=== PATIENT | female | born 1995 | race Caucasian/White ===

== ENCOUNTER 2024-12-28 17:05 | Inpatient (IN) | payer MEDICAID, OTHER ==
--- NOTE | 2024-12-28 17:59 | ED ---
General Adult HPI - General Source: patient Mode of arrival: ambulatory Limitations: no limitations <Leann Durbin - Last Filed: 12/28/24 17:59> - General Source: patient, RN notes reviewed, old records reviewed <Nikhil Rodriguez - Last Filed: 12/29/24 22:58> - General Chief complaint: Psychiatric Symptoms Stated complaint: Mental health eval Time Seen by Provider: 12/28/24 17:55 - History of Present Illness Initial comments: 29-year-old female presenting with chief complaint of anxiety. States that she is having a rough time at home and ran away today. She feels hopeless, no plan to harm herself. (Leann Durbin) Patient is a 29-year-old female who presents emergency department complaining of anxiety, suicidal ideations with thoughts of freezing to . Does have a history of poking her feet with needles. States she has not done that recently. States she is under a lot of stress lately. Denies homicidal ideations, times, plans. States she feels like she just wants to . Denies any hallucinations. Presents for further evaluation at this time. Patient originally seen as a quick note. (Nikhil Rodriguez) - Related Data Home Medications Medication Instructions Recorded Confirmed Desvenlafaxine [Pristiq ER] 100 mg PO DAILY 12/29/24 12/29/24 Levothyroxine Sodium [Synthroid] 137 mcg PO AC-BRKFST 12/29/24 12/29/24 Vitamin D3(Unknown Dose) 1 tab PO DAILY 12/29/24 12/29/24 clonazePAM [KlonoPIN] 0.5 mg PO DAILY 12/29/24 12/29/24 Allergies Allergy/AdvReac Type Severity Reaction Status Date / Time paroxetine [From Paxil] AdvReac "BP issues" Verified 12/29/24 18:06 sertraline [From Zoloft] AdvReac "made Verified 12/29/24 10:36 anxiety worse" Review of Systems ROS Other: All systems not noted in ROS Statement are negative. <Leann Durbin - Last Filed: 12/28/24 17:59> ROS Other: All systems not noted in ROS Statement are negative. <Nikhil Rodriguez - Last Filed: 12/29/24 22:58> ROS Statement: Those systems with pertinent positive or pertinent negative responses have been documented in the HPI. Review of Systems: CONST: Denies fever EYES: Denies blurry vision ENT: Denies nasal congestion C/V: Denies Chest pain RESP: Denies shortness of breath GI: Denies abdominal pain : Denies dysuria SKIN: Denies rash. MSK: Denies joint pain. NEURO: Denies headache (Nikhil Rodriguez) Past Medical History Past Medical History: Thyroid Disorder Past Psychological History: Anxiety, Bipolar, Depression, Panic Disorder Smoking Status: Never smoker Past Alcohol Use History: None Reported Past Drug Use History: None Reported <Leann Durbin - Last Filed: 12/28/24 17:59> - Past Family History Mother Family Medical History: Hypertension, Thyroid Disorder <Nikhil Rodriguez - Last Filed: 12/29/24 22:58> General Exam Limitations: no limitations <Leann Durbin - Last Filed: 12/28/24 17:59> <Nikhil Rodriguez - Last Filed: 12/29/24 22:58> - General Exam Comments Initial Comments: Visual Physical Exam Vital signs reviewed General: Well-appearing, nontoxic, no acute distress. Head: Normocephalic, atraumatic Eyes: PERRLA, EOMI ENT: Airway patent Chest: Nonlabored breathing Skin: No visual rash, normal skin tone Neuro: Alert and oriented 3 Musculoskeletal: No gross abnormalities (Leann Durbin) General: Appears anxious HEAD: Normal with no signs of head trauma. EYES: EOMI. ENT: Hearing grossly intact. RESPIRATORY: No respiratory distress. C/V: Regular rate and rhythm. ABD: Abdomen is nondistended. EXT: No obvious deformity. SKIN: No rashes or lesions observed on exposed skin. NEURO: Alert and oriented. (Nikhil Rodriguez) Course Vital Signs 12/28/24 12/28/24 12/29/24 17:25 22:44 12:40 Temperature 97.9 F Pulse Rate 110 H 104 H Respiratory 22 18 Rate Blood Pressure 131/72 137/85 O2 Sat by Pulse 97 100 Oximetry Medical Decision Making <Leann Durbin - Last Filed: 12/28/24 17:59> <Nikhil Rodriguez - Last Filed: 12/29/24 22:58> - Medical Decision Making I performed the quick note portion of this visit, electronically signed Leann Durbin PA-C (Leann Durbin) Was pt. sent in by a medical professional or institution (DAVID Sabillon, STEEPING PRESS TENDER, urgent care, hospital, or longterm...) When possible be specific @ -No Did you speak to anyone other than the patient for history (EMS, parent, family, police, friend...)? What history was obtained from this source @ -No Did you review nursing and triage notes (agree or disagree)? Why? @ -I reviewed and agree with nursing and triage notes Were old charts reviewed (outside hosp., previous admission, EMS record, old EKG, old radiological studies, urgent care reports/EKG's, longterm records)? Report findings @ -No old charts were reviewed Differential Diagnosis (chest pain, altered mental status, abdominal pain women, abdominal pain men, vaginal bleeding, weakness, fever, dyspnea, syncope, headache, dizziness, GI bleed, back pain, seizure, CVA, palpatations, mental health, musculoskeletal)? @ -Differential Mental Health Depression, anxiety, bipolar, psychosis, schizophrenia, borderline personality, situational depression, adjustment disorder, behavioral disorder, brain tumor, malingering, substance abuse, encephalopathy, medication reaction, dementia, hypothyroidism, degenerative neurologic disorder, lupus.... This is not meant to be all-inclusive list EKG interpreted by me (3pts min.). @ -None done X-rays interpreted by me (1pt min.). @ -None done CT interpreted by me (1pt min.). @ -None done U/S interpreted by me (1pt. min.). @ -None done What testing was considered but not performed or refused? (CT, X-rays, U/S, labs)? Why? @ -None What meds were considered but not given or refused? Why? @ -None Did you discuss the management of the patient with other professionals (professionals i.e. DAVID Sabillon, STEEPING PRESS TENDER, lab, RT, psych nurse, high school social studies teacher, loom tuner, teacher, boat officer, major case detective)? Give summary @ -No Was smoking cessation discussed for >3mins.? @ -No Was critical care preformed (if so, how long)? @ -No Were there social determinants of health that impacted care today? How? (Homelessness, low income, unemployed, alcoholism, drug addiction, transportation, low edu. Level, literacy, decrease access to med. care, fci, rehab)? @ -No Was there de-escalation of care discussed even if they declined (Discuss DNR or withdrawal of care, Hospice)? DNR status @ -No What co-morbidities impacted this encounter? (DM, HTN, Smoking, COPD, CAD, Cancer, CVA, ARF, Chemo, Hep., AIDS, mental health diagnosis, sleep apnea, morbid obesity)? @ -None Was patient admitted / discharged? Hospital course, mention meds given and route, prescriptions, significant lab abnormalities, going to OR and other pertinent info. @ -Patient presents emergency department for increased anxiety and suicidal ideation. BAT is 0. UDS is negative. Patient is not . COVID is negative. Vitals are within acceptable limits. At this time patient is medically cleared. Disposition pending psychiatric evaluation. EPS notified of the consult. Patient was given a dose of Ativan orally for anxiety. EPS evaluated the patient and did admit the patient to inpatient psychiatry. Undiagnosed new problem with uncertain prognosis? @ -No Drug Therapy requiring intensive monitoring for toxicity (Heparin, Nitro, Insulin, Cardizem)? @ -No Were any procedures done? @ -No Diagnosis/symptom? @ -Anxiety, suicidal ideation Acute, or Chronic, or Acute on Chronic? @ -Acute Uncomplicated (without systemic symptoms) or Complicated (systemic symptoms)? @ -Complicated Side effects of treatment? @ -None Exacerbation, Progression, or Severe Exacerbation] @ -No Poses a threat to life or bodily function? @ -Yes (Nikhil Rodriguez) - Lab Data Lab Results 12/28/24 12/28/24 12/28/24 Range/Units 18:08 18:08 19:32 Urine Color Colorless Urine Appearance Cloudy H (Clear) Urine pH 7.0 (5.0-8.0) Ur Specific [place] 1.001 (1.001-1.035) Urine Protein Negative (Negative) Urine Glucose (UA) Negative (Negative) Urine Ketones Negative (Negative) Urine Blood Negative (Negative) Urine Nitrite Negative (Negative) Urine Bilirubin Negative (Negative) Urine Urobilinogen <2.0 (<2.0) mg/dL Ur Leukocyte Esterase Large H (Negative) Urine RBC 1 (0-5) /hpf Urine WBC 10 H (0-5) /hpf Ur Squamous Epith Cells 1 (0-4) /hpf Urine HCG, Qual Not Detected (Not Detectd) Urine Opiates Screen Not Detected (NotDetected) Ur Oxycodone Screen Not Detected (NotDetected) Urine Methadone Screen Not Detected (NotDetected) Ur Barbiturates Screen Not Detected (NotDetected) U Tricyclic Antidepress Not Detected (NotDetected) Ur Phencyclidine Scrn Not Detected (NotDetected) Ur Amphetamines Screen Not Detected (NotDetected) U Methamphetamines Scrn Not Detected (NotDetected) U Benzodiazepines Scrn Not Detected (NotDetected) Urine Cocaine Screen Not Detected (NotDetected) U Marijuana (THC) Screen Not Detected (NotDetected) SARS-CoV-2 (PCR) Not Detected (Not Detectd) Disposition <Leann Durbin - Last Filed: 12/28/24 17:59> <Nikhil Rodriguez - Last Filed: 12/29/24 22:58> Clinical Impression: Acute anxiety, Suicidal ideation Disposition: TRANSFER TO PSYCH HOSP/UNIT Condition: Stable
[2024-12-28 18:21] LABS: Appearance,Urine Cloudy (Clear); Bilirubin,Urine Negative (Negative); Blood,Urine Negative (Negative); Color,Urine Colorless; Glucose,Urine (UA) Negative (Negative); Ketones,Urine Negative (Negative); Leukocyte Esterase,Urine Large (Negative); Nitrite,Urine Negative (Negative); Protein,Urine Negative (Negative); RBC,Urine 1 /hpf (0-5); Specific Gravity,Urine 1.001 (1.001-1.035); Squamous Epithelial Cell,Urine 1 /hpf (0-4); Urobilinogen,Urine <2.0 mg/dL (<2.0); WBC,Urine 10 /hpf (0-5)
[2024-12-28 18:48] LABS: Amphetamine Screen,Urine Not Detected (NotDetected); Barbiturate Screen,Urine Not Detected (NotDetected); Benzodiazepines Screen,Urine Not Detected (NotDetected); Cocaine Screen,Urine Not Detected (NotDetected); Methadone Screen, Urine Not Detected (NotDetected); Opiate Screen,Urine Not Detected (NotDetected); Oxycodone Screen, Urine Not Detected (NotDetected); Phencyclidine Screen,Urine Not Detected (NotDetected); Tricyclic Antidepressant,Urine Not Detected (NotDetected); Urn Cannabinoid Scrn Not Detected (NotDetected)
[2024-12-28] MEDS: LORazepam 1 MG TAB PO STA (19:48)
[2024-12-29] MEDS ORDERED: LORazepam 2 MG/ML INJ IM PRN (12:10)
[2024-12-29] MEDS ORDERED: haloperidoL 5 MG TAB PO PRN (12:10)
[2024-12-29] MEDS ORDERED: HALOPERIDOL LACTATE 5 MG/ML 1 ML VIAL IM PRN (12:10)
[2024-12-29] MEDS ORDERED: ACETAMINOPHEN TAB 325 MG TAB PO PRN (12:10)
[2024-12-29] MEDS ORDERED: IBUPROFEN 600 MG TAB PO PRN (12:10)
[2024-12-29] MEDS ORDERED: MAGNESIUM HYDROXIDE 2,400 MG/30 ML CUP PO PRN (12:10)
[2024-12-29] MEDS ORDERED: MAG HYDROX/AL HYDROX/SIMETH 355 ML BOTTLE PO PRN (12:10)
[2024-12-29] MEDS: LEVOTHYROXINE 137 MCG TAB PO SCH (13:34)
[2024-12-29] MEDS: DESVENLAFAXINE SUCCINATE 50 MG TAB.ER.24H PO SCH (13:34)
--- NOTE | 2024-12-29 20:34 | P.CONS ---
History of Present Illness - Reason for Consult Consult date: 12/29/24 Medical management Requesting physician: Hunter Mcpherson - Chief Complaint Depressed - History of Present Illness Very pleasant 29-year-old patient follows with Dr. Rajani Tinoco. History history of hypothyroid, depression, panic attacks. Patient presented to the ER being increasingly anxious suicidal ideations with thoughts of freezing to . History of poking her feet with needles. Also a lot of stress. She likes her mother but she feels her mother is also with a lot of anxiety and stress that is contributing to her presentation. Patient not able to keep jobs. She does stress eating. Sleeps okay. Denies any pain. Does drink a lot of water. Review of systems: GEN.: None EYES: None HEENT: None NECK: None RESPIRATORY: None CARDIOVASCULAR: None GASTROINTESTINAL: None GENITOURINARY: None MUSCULOSKELETAL: None LYMPHATICS: None HEMATOLOGICAL: None PSYCHIATRY: As above NEUROLOGICAL: None Social history: Lives with her mother. Does not smoke or drink or does any recreational drugs. Currently not working Physical examination: VITAL SIGNS: 97.9, 110, 22, 131/72, 97% room air GENERAL: BMI 41.3, sitting up smiling. EYES: Pupils equal. Conjunctiva fransisca l. HEENT: External appearance of nose and ears normal, oral cavity grossly normal. NECK: JVD not raised; masses not palpable. HEART: First and second heart sounds are normal; no edema. LUNGS: Respiratory rate normal; clear to auscultation. ABDOMEN: Soft, nontender, liver spleen not palpable, no masses palpable. PSYCH: [Alert and oriented x3; mood and affect. Anxious. MUSCULOSKELETAL:No Clubbing/cyanosis;muscles-grossly intact NEUROLOGICAL: Cranial nerves grossly intact; no facial asymmetry, power and sensation grossly intact. LYMPHATICS: No lymph nodes palpable in the axilla and neck INVESTIGATIONS, reviewed in the clinical context: UA cloudy, leukoesterase large WBC 10. Urine hCG not detected Urine drug screen: Negative SARS-CoV-2 PCR: Not detected Assessment plan: -Hypothyroid Levothyroxine 137 mcg/day. Check TSH and free T4 -Morbid obesity BMI 41.3 Weight loss measures -Panic attacks Klonopin as needed -Anxiety depression Pristiq ER. Other recommendations per psychiatry. Ativan as needed. Care was discussed with patient. Questions answered. Patient should follow-up with Dr. Tinoco upon discharge. Past Medical History Past Medical History: Thyroid Disorder History of Any Multi-Drug Resistant Organisms: None Reported Past Surgical History: No Surgical Hx Reported Past Anesthesia/Blood Transfusion Reactions: No Reported Reaction Past Psychological History: Anxiety, Bipolar, Depression, Panic Disorder Smoking Status: Never smoker Past Alcohol Use History: None Reported Past Drug Use History: None Reported - Past Family History Mother Family Medical History: Hypertension, Thyroid Disorder Medications and Allergies Home Medications Medication Instructions Recorded Confirmed Type Desvenlafaxine [Pristiq ER] 100 mg PO DAILY 12/29/24 12/29/24 History Levothyroxine Sodium [Synthroid] 137 mcg PO AC-BRKFST 12/29/24 12/29/24 History Vitamin D3(Unknown Dose) 1 tab PO DAILY 12/29/24 12/29/24 History clonazePAM [KlonoPIN] 0.5 mg PO DAILY 12/29/24 12/29/24 History Allergies Allergy/AdvReac Type Severity Reaction Status Date / Time paroxetine [From Paxil] AdvReac "BP issues" Verified 12/29/24 18:06 sertraline [From Zoloft] AdvReac "made Verified 12/29/24 10:36 anxiety worse" Physical Exam Vitals: Vital Signs Temp Pulse Pulse Resp BP BP Pulse Ox 12/29/24 14:46 97.8 F 98 146/84 98 12/29/24 12:40 104 H 18 137/85 100 12/28/24 22:44 131/72 Intake and Output 12/29/24 12/29/24 12/29/24 06:59 14:59 22:59 Other: Weight 105.8 kg
[2024-12-30 07:51] LABS: Basophils % (A) 0 %; Eosinophils % (A) 0 %; HCT 40.4 % (34.0-46.0); Lymphocytes # (A) 2.6 k/uL (1.0-4.8); Lymphocytes % (A) 36 %; MCH 27.6 pg (25.0-35.0); MCHC 32.2 g/dL (31.0-37.0); MCV 85.6 fL (80.0-100.0); Mean Platelet Volume 7.2; Monocytes # (A) 0.5 k/uL (0-1.0); Monocytes % (A) 6 %; Neutrophils # (A) 4.1 k/uL (1.3-7.7); Neutrophils % (A) 56 %; Platelet Count 375 k/uL (150-450); RBC 4.72 m/uL (3.80-5.40); RDW 13.5 % (11.5-15.5); WBC 7.3 k/uL (3.8-10.6)
[2024-12-30 08:13] LABS: ALT 26 U/L (4-34); AST 21 U/L (14-36); African American GFR (CKD) >90 (>60 ml/min/1.73 sqM); Albumin 4.6 g/dL (3.5-5.0); Alkaline Phosphatase 72 U/L (38-126); Anion Gap 12 mmol/L; Blood Urea Nitrogen 9 mg/dL (7-17); Calcium 9.6 mg/dL (8.4-10.2); Carbon Dioxide 23 mmol/L (22-30); Chloride 103 mmol/L (98-107); Glucose 95 mg/dL (74-99); Non-African American GFR(CKD) >90 (>60 ml/min/1.73 sqM); Potassium 4.8 mmol/L (3.5-5.1); Sodium 138 mmol/L (137-145); Total Bilirubin 0.7 mg/dL (0.2-1.3); Total Protein 7.6 g/dL (6.3-8.2)
[2024-12-30] MEDS: clonazePAM 0.5 MG TAB PO PRN (08:32)
[2024-12-30] MEDS: LORazepam 1 MG TAB PO PRN (09:27)
[2024-12-30] MEDS: busPIRone HCl 10 MG TAB PO SCH (12:08)
--- NOTE | 2024-12-30 12:48 | P.HP ---
Psychiatric H&P - . H&P Date: 12/30/24 History & Physical: Allergies Allergy/AdvReac Type Severity Reaction Status Date / Time paroxetine from Paxil AdvReac "BP issues" Verified 12/29/24 18:06 sertraline from Zoloft AdvReac "made Verified 12/29/24 10:36 anxiety worse" Vital Signs Temp 97.8 F 12/29/24 14:46 Pulse 98 12/29/24 14:46 Resp 18 12/29/24 12:40 BP 146/84 12/29/24 14:46 Pulse Ox 98 12/29/24 14:46 FiO2 Intake & Output 12/29/24 12/30/24 12/30/24 18:59 06:59 18:59 Weight 105.8 kg Laboratory Last Values WBC 7.3 k/uL (3.8-10.6) 12/30/24 07:31 RBC 4.72 m/uL (3.80-5.40) 12/30/24 07:31 Hgb 13.0 gm/dL (11.4-16.0) 12/30/24 07:31 Hct 40.4 % (34.0-46.0) 12/30/24 07:31 MCV 85.6 fL (80.0-100.0) 12/30/24 07:31 MCH 27.6 pg (25.0-35.0) 12/30/24 07:31 MCHC 32.2 g/dL (31.0-37.0) 12/30/24 07:31 RDW 13.5 % (11.5-15.5) 12/30/24 07:31 Plt Count 375 k/uL (150-450) 12/30/24 07:31 MPV 7.2 12/30/24 07:31 Neutrophils % 56 % 12/30/24 07:31 Lymphocytes % 36 % 12/30/24 07:31 Monocytes % 6 % 12/30/24 07:31 Eosinophils % 0 % 12/30/24 07:31 Basophils % 0 % 12/30/24 07:31 Neutrophils # 4.1 k/uL (1.3-7.7) 12/30/24 07:31 Lymphocytes # 2.6 k/uL (1.0-4.8) 12/30/24 07:31 Monocytes # 0.5 k/uL (0-1.0) 12/30/24 07:31 Eosinophils # 0.0 k/uL (0-0.7) 12/30/24 07:31 Basophils # 0.0 k/uL (0-0.2) 12/30/24 07:31 Sodium 138 mmol/L (137-145) 12/30/24 07:31 Potassium 4.8 mmol/L (3.5-5.1) 12/30/24 07:31 Chloride 103 mmol/L (98-107) 12/30/24 07:31 Carbon Dioxide 23 mmol/L (22-30) 12/30/24 07:31 Anion Gap 12 mmol/L 12/30/24 07:31 BUN 9 mg/dL (7-17) 12/30/24 07:31 Creatinine 0.73 mg/dL (0.52-1.04) 12/30/24 07:31 Est GFR (CKD-EPI)AfAm >90 (>60 ml/min/1.73 sqM) 12/30/24 07:31 Est GFR (CKD-EPI)NonAf >90 (>60 ml/min/1.73 sqM) 12/30/24 07:31 Glucose 95 mg/dL (74-99) 12/30/24 07:[address] Glu mg/dL 111 mg/dL 12/30/24 07:31 Hemoglobin A1c 5.5 % (<=6.0) 12/30/24 07:31 Calcium 9.6 mg/dL (8.4-10.2) 12/30/24 07:31 Total Bilirubin 0.7 mg/dL (0.2-1.3) 12/30/24 07:31 AST 21 U/L (14-36) 12/30/24 07:31 ALT 26 U/L (4-34) 12/30/24 07:31 Alkaline Phosphatase 72 U/L (38-126) 12/30/24 07:31 Total Protein 7.6 g/dL (6.3-8.2) 12/30/24 07:31 Albumin 4.6 g/dL (3.5-5.0) 12/30/24 07:31 TSH 0.860 mIU/L (0.465-4.680) 12/30/24 07:31 Urine Color Colorless 12/28/24 18:08 Urine Appearance Cloudy (Clear) H 12/28/24 18:08 Urine pH 7.0 (5.0-8.0) 12/28/24 18:08 Ur Specific [place] 1.001 (1.001-1.035) 12/28/24 18:08 Urine Protein Negative (Negative) 12/28/24 18:08 Urine Glucose (UA) Negative (Negative) 12/28/24 18:08 Urine Ketones Negative (Negative) 12/28/24 18:08 Urine Blood Negative (Negative) 12/28/24 18:08 Urine Nitrite Negative (Negative) 12/28/24 18:08 Urine Bilirubin Negative (Negative) 12/28/24 18: Urine Urobilinogen <2.0 mg/dL (<2.0) 12/28/24 18:08 Ur Leukocyte Esterase Large (Negative) H 12/28/24 18:08 Urine RBC 1 /hpf (0-5) 12/28/24 18:08 Urine WBC 10 /hpf (0-5) H 12/28/24 18:08 Ur Squamous Epith Cells 1 /hpf (0-4) 12/28/24 18:08 Urine HCG, Qual Not Detected (Not Detectd) 12/28/24 18:08 Urine Opiates Screen Not Detected (NotDetected) 12/28/24 18:08 Ur Oxycodone Screen Not Detected (NotDetected) 12/28/24 18:08 Urine Methadone Screen Not Detected (NotDetected) 12/28/24 18:08 Ur Barbiturates Screen Not Detected (NotDetected) 12/28/24 18:08 U Tricyclic Antidepress Not Detected (NotDetected) 12/28/24 18:08 Ur Phencyclidine Scrn Not Detected (NotDetected) 12/28/24 18:08 Ur Amphetamines Screen Not Detected (NotDetected) 12/28/24 18:08 U Methamphetamines Scrn Not Detected (NotDetected) 12/28/24 18:08 U Benzodiazepines Scrn Not Detected (NotDetected) 12/28/24 18:08 Urine Cocaine Screen Not Detected (NotDetected) 12/28/24 18:08 U Marijuana (THC) Screen Not Detected (NotDetected) 12/28/24 18:08 SARS-CoV-2 (PCR) Not Detected (Not Detectd) 12/28/24 19:32 12/30/24 11:45 IDENTIFYING DATA: Patient is a 29-year-old female, current lives with her mother in a house, she is single she is unemployed she has no kids HPI: Patient presented to the hospital and was evaluated by [facility] health social work professor "Cl was sitting in bed A/O x4 visibly trembeling. Brought in via sister due to depression, anxiety, and SI. Cl reports they have struggled with anxiety their whole life, to the point that it would interfere with going to school and sustaining employment consistently. 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 Cl reports things "came to a head yesterday when I started having thoughts about not being able to take it anymore, and not wanting to be a burden on anyone anymore, not being able to take care of myself properly, and not able to take the verbal,emotional, mental abuse of my Mom." Cl reports crying spells, isolating,hypersomnia,feeling hopeless,helpless,chronic anxiety, potential agoraphobia, panic attacks, high stress vulnerability, labile mood, and feeling numb. Cl was tearful while admitting these things. Cl reports " my mom is highly dependant on me and I just can't do it, I don't want to drag anyone down else down. I even was trying to make arrangements for someone to care for my dog." Cl states they did not have a plan for suicide however talked about if they froze to . " I don't think I would go through with it, but the thoughts were there." Cl states " I am harsh on myself and don't want to be a burden to anyone." Cl reports being unemployed and struggling to keep a job. " Lets put it this way, I went on an interview, and my mom demanded to go, so I let her. On the way to the interview she was very mean to me and making comments that were so upseting, that I was all worked up and didn't even go to the interview." Cl states " that is what really pushed me over the edge, I thought, if I can't even go to an interview or take care of myself, then its a done deal, and there's no point in continuing like this." Cl notified family at some point and was brought to ED 12/28/24. Judgement/insight/impulse control: fair ADLS: poor Sleep/Colin: poor hypersomnia/poor (overeating) Cl also reported having an "obsession" with consuming water, and drinking up to 2 gallons a day. " I am not sure what it is but when I an an anxious I am craving a lot of water." Cl reports being conscious of their health and trying not to overeat. " I could eat sweets a lot but figured water was the better option."" Patient was seen today wandering the hallways agreeable to speak to travel writer. She claims that she has been having an increase in her anxiety lately. States that she has had anxiety since she was a child however it has worsened lately. States that she gets panic attacks about 1-2 times a week. States that she is not able to work due to her anxiety and also claims it is hard to leave her house. States that it has been difficult taking care of her mother who has several medical issues and is very "needy". Claims that her mother is very demanding to her time and she feels that she does not have her own independence. She did exhibit racing thoughts, was rambling, tangential during conversation. Endorsing anxiety and depression increasing lately. States that she was brought into the hospital by her sister due to suicidal thoughts however no specific plan. Claims that she is not having a paranoid at this time, states that she has been sleeping about 8 to 12 hours a night, claims that her appetite is fair. Patient denies any current suicidal or homicidal ideations intent or plan. At this time patient denies any auditory or visual hallucinations. Patient denies any flight of ideas racing thoughts and increased in goal directed behavior. Patient admits to using any recreational drugs or cigarettes PAST PSYCHIATRIC HISTORY: Patient has a history of severe anxiety and depression. She claims that she is currently on Pristiq and also on Klonopin as needed. Patient denies any previous psychiatric hospitalizations. States that she follows up with a nurse practitioner doing telehealth. Patient denies any history of suicide attempts in the past. PMH: as per ER note ALLERGIES: as per EMR CHEMICAL DEPENDENCY HISTORY: as per HPI FAMILY PSYCHIATRIC/SUBSTANCE USE HISTORY: States that she believes her mother has some form of mental illness SOCIAL HISTORY: Patient was born and raised in [facility]. States that she completed high school. She is currently unemployed she lives with her mother in a house, she is single she has no kids. Denies any legal history. MENTAL STATUS EXAM: General Appearance: Patient appears to be overweight, stated age is alert, directable, and attempts to cooperate. Patient appears to have fair hygiene and grooming. Behavior: Patient is seated without any agitated behavior. Attempts to co operate Speech: Patient's speech is fluent and nonpressured. Rambling, tangential Mood/Affect: Patient reports their mood is depressed and anxious, affect is congruent and constricted. Suicidality/Homicidality: Patient denies having any homicidal ideation intent or plan. Denies any suicidal ideations intent or plan Perceptions: Patient denies any visual hallucinations and denies any auditory h allucinations Though content/process: Rambling, tangential thought process. Racing thoughts Memory and concentration: AOX3, grossly intact for the purposes of this session. Can spell "WORLD" backwards Judgment and insight: Fair STRENGTHS/WEAKNESSES: strength is that patient is resilient. Weakness is that patient has poor social support and is unemployed INTELLECT: Average IMPRESSIONS: Depressive disorder unspecified Generalized anxiety disorder with panic attacks PLAN: -Patient is admitted under voluntary status to [facility] for stabilization of psychiatric symptoms and safety. Patient has signed adult voluntary form and has signed medication consent and is placed in patient's chart. -Medications : Start Cymbalta 30 mg nightly for mood/anxiety, BuSpar 10 mg 3 times daily for anxiety. -Ativan and Haldol PRN for agitation/aggression -Patient was informed of the risks, benefits and side effects of the medications and patient verbally consented to taking the medications. Patient signed med consent form and was placed in chart. Patient was offered medication information and accepted it -Internal Medicine consult to perform medical evaluation and physical. -NRT -not needed as patient does not smoke -SW on board for discharge planning. Encourage patient to participate in groups to work on coping skills.
[2024-12-30 15:36] LABS: Chol/HDL Ratio 3.38 Ratio; LDL Cholesterol,Calculated 84.6 mg/dL (0.0-131.0)
[2024-12-30] MEDS: DULoxetine HCL 30 MG CAPSULE.DR PO SCH (21:07)
[2024-12-31] MEDS ORDERED: hydrOXYzine pamoate 25 MG CAP PO PRN (11:06)
--- NOTE | 2024-12-31 11:11 | P.PN ---
Progress Note - Text Progress Note Date: 12/31/24 Interval History: Patient was seen wandering the hallways and was agreeable to speak to fha underwriter in the office today. she seems more cooperative today, is endorsing continued anxiety however is stating that it is calming down a bit today. States that she did wake up and took an Ativan and is now feeling a bit groggy. Claims that her sleep was on and off last night. We spoke about replacing the Ativan with Vistaril which she is okay to try. Claims that she has been trying to go to groups has been showering, had poor appetite this morning however tried to eat some food. She seems a bit more pleasant claims that her depression is a bit better today. Denies any suicidal homicidal ideations intent or plan denies any auditory or visual hallucinations. MENTAL STATUS EXAM: General Appearance: Patient appears to be overweight, stated age is alert, directable, and attempts to cooperate. Patient appears to have fair hygiene and grooming. Behavior: Patient is seated without any agitated behavior. Attempts to cooperate Speech: Patient's speech is fluent and nonpressured. Rambling less today. Mood/Affect: Patient reports their mood is anxiety, improving, affect is congruent and constricted. Improving mildly Suicidality/Homicidality: Patient denies having any homicidal ideation intent or plan. Denies any suicidal ideations intent or plan Perceptions: Patient denies any visual hallucinations and denies any auditory hallucinations Though content/process: Rambling, more goal oriented today less racing thoughts Memory and concentration: AOX3, grossly intact for the purposes of this session Judgment and insight: Fair IMPRESSIONS: Depressive disorder unspecified Generalized anxiety disorder with panic attacks PLAN: -Patient is admitted under voluntary status to [facility] for stabilization of psychiatric symptoms and safety. Patient has signed adult voluntary form and has signed medication consent and is placed in patient's chart. -Medications : Increase Cymbalta 30 mg bid for mood/anxiety, BuSpar 10 mg 3 times daily for anxiety. -d/c ativan prn and replace with vistaril prn for anxiety and Haldol PRN for agitation/aggression -NRT -not needed as patient does not smoke -SW on board for discharge planning. Encourage patient to participate in groups to work on coping skills. likely discharge next week friday if patient is improving.
[2024-12-31] MEDS: DULoxetine HCL 30 MG CAPSULE.DR PO SCH (21:32)
--- NOTE | 2025-01-01 12:55 | P.PN ---
Progress Note - Text Progress Note Date: 01/01/25 Interval history: Patient was seen in the lounge talking to another patient and was directable and agreeable to speak with check writer. Patient claims that she is doing a bit better today with regards to her anxiety and also denies any depression today. states that her boyfriend came to visit her today which went well. she claims that she will be interested in groups and therapy when she leaves. states that the meds are working well and states her appetite is good. states she was able to sleep well last night. At this time patient denies any suicidal or homicidal ideations intent or plan. Denies any Auditory or visual hallucinations. Patient denies any side effects from the medications and has been compliant with meds. Mental status exam: General Appearance: Patient appears to be overweioght, stated age is alert, directable, and cooperative. Wearing a long skirt. Behavior: No agitated behavior. Patient is calm and directable Speech: Patient's speech is fluent and nonpressured. Mood/Affect: Mood is improving mildly, affect is congruent and improving Suicidality/Homicidality: Patient denies having any suicidal or homicidal ideation intent or plan. Perceptions: Patient denies any auditory or visual hallucinations. Though content/process: There is no evidence of any delusional thought content and thought process is linear and goal-directed. More future oriented. Memory and concentration: AOX3, grossly intact for the purposes of this session Judgment and insight: improving mildly Assessment/Plan: Continue with current diagnosis. Patient continues to meet criteria for inpatient psychiatric admission for symptom stabilization and safety. Patient will be maintained on current psychotropic medication regimen, change buspar to 20 mg bid for anxiety. Monitor for medication compliance and for any psychotropic medication side effects. Will continue to monitor ongoing response to treatment. Encouraged participation in milieu.
[2025-01-01] MEDS: busPIRone HCl 10 MG TAB PO SCH (20:53)
--- NOTE | 2025-01-02 11:26 | P.PN ---
Progress Note - Text Progress Note Date: 01/02/25 Interval history: Patient was seen in the [facility] with another patient and was directable and ag reeable to speak with proposal lead writer. she claims that she did feel a bit down this morning due to thinking about her father passing away in this hospital about a year ago. She claims that overall her depression has improved significantly. Claims that her anxiety is also improving, she did not ask for Klonopin today. She wants to keep her medications the same at this time. She remains a lot brighter today, interacting with another patient doing a puzzle with her. Claims that she slept fairly last night. Been eating fairly. At this time patient denies any suicidal or homicidal ideations intent or plan. Denies any Auditory or visual hallucinations. Patient denies any side effects from the medications and has been compliant with meds. Mental status exam: General Appearance: Patient appears to be overweioght, stated age is alert, directable, and cooperative. Behavior: No agitated behavior. Patient is calm and directable, improving Speech: Patient's speech is fluent and nonpressured. Mood/Affect: Mood is improving mildly, affect is congruent and improving, seems brighter Suicidality/Homicidality: Patient denies having any suicidal or homicidal ideation intent or plan. Perceptions: Patient denies any auditory or visual hallucinations. Though content/process: There is no evidence of any delusional thought content and thought process is linear and goal-directed. More future oriented. Memory and concentration: AOX3, grossly intact for the purposes of this session Judgment and insight: improving mildly Assessment/Plan: Continue with current diagnosis. Patient continues to meet criteria for inpatient psychiatric admission for symptom stabilization and safety. Patient will be maintained on current psychotropic medication regimen. Monitor for medication compliance and for any psychotropic medication side effects. Will continue to monitor ongoing response to treatment. Encouraged participation in milieu.
[2025-01-03 07:17] VITALS: BP 126/89; PULSE 101; RESP 16; TEMP 97.8
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
[2025-01-03] MEDS ORDERED: busPIRone HCl 10 MG TAB PO SCH (21:00)
--- NOTE | 2025-01-05 09:05 | CDI ---
Documentation Clarification Form Date: 01/05/2025 08:53:48 AM From: Aretha Chi Phone: Admit Date: 12/29/2024 12:07:00 PM Patient Name: Bre King Visit Number: [id number] Discharge Date: 01/03/2025 02:39:00 PM ATTENTION: The Clinical Documentation Specialists (CDI) and [facility] Coding Staff appreciate your assistance in clarifying documentation. Please respond to the clarification below the line at the bottom and electronically sign. The CDI & [facility] Coding staff will review the response and follow-up if needed. Please note: Queries are made part of the Legal Health Record. If you have any questions, please contact the author of this message via ITS. Doctor/Provider: Hunter Mcpherson Bipolar is documented in consult note on 12/29/2024 in past psychological history which may lack sufficient clinical evidence/support in the medical record. Additional clarification is requested. History/Risk Factors: Patient is a 29-year-old female, current lives with her mother in a house, she is singleshe is unemployedshe has no kids Clinical Indicators: H/P note on 12/30 -Brought in via sister due to depression,anxiety, and SI. Cl reports they have struggled withanxietytheir whole life, to the point that it would interfere with going to school and sustaining employment consistently. 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 states that her boyfriend came to visit her today which went well. she claims that she will be interested in groups andtherapywhen she leaves. states that the meds are working well and states her appetite is good. states she was able to sleep well last night. DS 01/03 -Depressive disorderunspecified Generalized anxiety disorderwithpanic attacks Throughout the course of the hospitalization patient gradually improved with regards to mood,anxiety, sleep and became more future oriented with improved insight and judgment. Treatment: Start Cymbalta 30 mg nightly for mood/anxiety, BuSpar 10 mg 3 times daily foranxiety. -Ativan and Haldol PRN foragitation/aggression Please clarify if Bipolar is a valid diagnosis? [ X ] No, Bipolar is ruled out [ ] Yes, Bipolar is present as evidence by (additional clinical support): [ ] Other (please specify diagnosis) [ ] Unable to determine (Template Last Revised: April 2024) MTDD
== END 2025-01-03 14:39 | disposition home or self-care (01) | DRG 756 ==
LOC: EC 17:05 → 3MHU 12-29 12:07
PROVIDERS: ADMIT Psychiatry & Neurology Psychiatry; ATTEND Psychiatry & Neurology Psychiatry
DX: F41.0 Panic disorder [episodic paroxysmal anxiety] (principal); F41.1 Generalized anxiety disorder; R45.851 Suicidal ideations; E07.9 Disorder of thyroid, unspecified; E03.9 Hypothyroidism, unspecified; E66.01 Morbid (severe) obesity due to excess calories; F32.A Depression, unspecified; Z68.41 Body mass index [BMI] 40.0-44.9, adult; Z88.8 Allergy status to other drugs, medicaments and biological substances; Z56.0 Unemployment, unspecified; Z79.890 Hormone replacement therapy
CPT/HCPCS: 80053; 80061; 80306; 81001; 81025; 82075; 83036; 84443; 85025; 87635; 99285